=== PATIENT | female | born 1935 | race Caucasian/White ===

== ENCOUNTER 2017-02-16 10:51 | Emergency (ER) | payer BC ==
[~2017-02-16] VITALS: Ht 165.1 cm; Wt 81.0 kg
[~2017-02-16 10:51] MED LIST: ASPI-650; EZET1TAB10 PO; METO50TA16 PO; OLME40TA14 PO
[2017-02-16 10:54] VITALS: Ht 165.1 cm; Wt 81.0 kg
[2017-02-16] MEDS ORDERED: NICARDipine HCL 30 MG CAPSULE PO ONE (12:00)
[2017-02-16 12:17] VITALS: BP 159/79
--- NOTE | 2017-02-16 14:34 | ERD ---
ER Documentation Chief Complaint Date/Time DATE: 02/16/17 TIME: 14:29 Chief Complaint high blood pressure , took her htn meds at home , denies any cp , no sob HPI Patient is an 81-year-old female with hypertension who presents with elevated blood pressure. She says that her systolic blood pressure was 195. The symptoms started this morning. The patient took blood pressure medicine at 6: 45 AM. She denies chest pain or shortness of breath. She had a headache but she has frequent headaches per the daughter. She is taking her blood pressure medicines regularly. She was seen on January 25, 2016 for the same. ROS All systems reviewed and are negative except as per history of present illness. Medications Home Meds Active Scripts Olmesartan Medoxomil (Benicar) 40 Mg Tablet, 40 MG PO DAILY, #30 TAB Prov:MARCUS CARY DO 01/25/16 Reported Medications Metoprolol Succinate* (Toprol XL*) 50 Mg Tab.er.24h, 50 MG PO DAILY, #30 TAB 01/25/16 Ezetimibe-Simvastatin (Vytorin) 10-40 Mg Tablet, 1 TAB PO HS, TAB 01/25/16 Aspirin (Aspirin) 81 Mg Tablet 03/02/10 Allergies Allergies: Coded Allergies: No Known Allergies (Verified Allergy, Mild, 01/25/16) PMhx/Soc History of Surgery: Yes (R CATARACT AND ROSARIO KNEES) Anesthesia Reaction: No Hx Neurological Disorder: No Hx Respiratory Disorders: No Hx Cardiac Disorders: Yes (HTN,HIGH CHOLESTEROL) Hx Psychiatric Problems: No Hx Miscellaneous Medical Probl: No Hx Alcohol Use: No Hx Substance Use: No Hx Tobacco Use: No FmHx Family History: diabetes Physical Exam Vitals Vital Signs Date Time Temp Pulse Resp B/P Pulse Ox O2 Delivery O2 Flow Rate FiO2 02/16/17 12:17 159/79 02/16/17 11:42 161/74 02/16/17 10:54 98.1 88 18 195/92 98 Physical Exam Const: No acute distress Head: Atraumatic Eyes: Normal Conjunctiva ENT: Normal External Ears, Nose and Mouth. Neck: Full range of motion..~ No meningismus. Resp: Clear to auscultation bilaterally Cardio: Regular rate and rhythm, no murmurs Abd: Soft, non tender, non distended. Normal bowel sounds Skin: No petechiae or rashes Back: No midline or flank tenderness Ext: No cyanosis, or edema Neur: Awake and alert Psych: Normal Mood and Affect Results 24 hrs Current Medications Medications (Trade) Dose Ordered Sig/Melissa Route PRN Reason Start Time Stop Time Status Last Admin Dose Admin Nicardipine HCl (Cardene) 30 mg ONCE ONCE PO 02/16/17 12:00 02/16/17 12:01 DC Procedures/MDM Patient is a 81-year-old female with hypertension who presents with high blood pressure. The patient was going to be given Cardene but her blood pressure is improved to 160 systolic and she did not want to take it. The patient will be discharged home and can discuss with her primary doctor about any changes to her medications that she would need for blood pressure. At this point I doubt hypertensive emergency. I do not think the patient requires further workup or admission the hospital at this time. Departure Diagnosis: Primary Impression: Hypertension Hypertension type: essential hypertension Qualified Code: I10 - Essential hypertension Condition: Fair Patient Instructions: High Blood Pressure (Hypertension) Referrals: EDGAR LOPEZ MD Additional Instructions: Call your primary care doctor TOMORROW for an appointment during the next 1 WEEK.Tell the school secretary that you were referred from this facility.See the doctor sooner or return here if your condition worsens before your appointment time. ЕЛЕНА TRAVIS MD Feb 16, 2017 14:33
== END 2017-02-16 12:21 | disposition home or self-care (01) ==
LOC: E/R 10:51
DX: I10 Essential (primary) hypertension (principal); Z79.82 Long term (current) use of aspirin
CPT/HCPCS: 99282